=== PATIENT | male | born 1970 | race Caucasian/White ===

== ENCOUNTER 2023-08-15 13:40 | Outpatient (REF) | payer MEDICAID, SELFPAY ==
--- NOTE | ~2023-08-15 | XR_ITS ---
EXAMINATION: XR CERVICAL SPINE XR RIGHT KNEE XR LEFT KNEE CLINICAL INFORMATION: Per technologist, patient stated pain, no injury in neck and bilateral knees, arthritis. COMPARISON: None available. TECHNIQUE: 2 views of each knee. 3 views of the cervical spine. FINDINGS: LEFT KNEE: Small joint effusion. Mild narrowing of the medial compartment. Tiny posterior patellar osteophytes. Moderate anterior and superior patellar spurs. RIGHT KNEE: Mild narrowing of the medial compartment. Small anterior inferior patellar spur. Periosteal reaction along the proximal lateral shaft of the right fibula with oblique lucency suggestive of prior fracture. Similar, but less prominent focal periosteal reaction along the corresponding lateral shaft of the proximal tibia. No significant joint effusion. CERVICAL SPINE: Straightening of the normal cervical lordosis. Moderate degenerative changes with loss of disc space height at C5-C6. Mild loss of disc space height at C6-C7. XR/XR knee RT 2V IMPRESSION: 1. Moderate degenerative changes C5-C6. 2. Mild degenerative changes in the bilateral knees. 3. Periosteal reaction along the proximal lateral shaft of the right fibula with oblique lucency suggestive of prior fracture. Similar, but less prominent focal periosteal reaction along the corresponding lateral shaft of the proximal tibia. Correlation with clinical exam recommended.
--- NOTE | ~2023-08-15 | XR_ITS ---
EXAMINATION: XR CERVICAL SPINE XR RIGHT KNEE XR LEFT KNEE CLINICAL INFORMATION: Per technologist, patient stated pain, no injury in neck and bilateral knees, arthritis. COMPARISON: None available. TECHNIQUE: 2 views of each knee. 3 views of the cervical spine. FINDINGS: LEFT KNEE: Small joint effusion. Mild narrowing of the medial compartment. Tiny posterior patellar osteophytes. Moderate anterior and superior patellar spurs. RIGHT KNEE: Mild narrowing of the medial compartment. Small anterior inferior patellar spur. Periosteal reaction along the proximal lateral shaft of the right fibula with oblique lucency suggestive of prior fracture. Similar, but less prominent focal periosteal reaction along the corresponding lateral shaft of the proximal tibia. No significant joint effusion. CERVICAL SPINE: Straightening of the normal cervical lordosis. Moderate degenerative changes with loss of disc space height at C5-C6. Mild loss of disc space height at C6-C7. XR/XR cervical spine 3V IMPRESSION: 1. Moderate degenerative changes C5-C6. 2. Mild degenerative changes in the bilateral knees. 3. Periosteal reaction along the proximal lateral shaft of the right fibula with oblique lucency suggestive of prior fracture. Similar, but less prominent focal periosteal reaction along the corresponding lateral shaft of the proximal tibia. Correlation with clinical exam recommended.
--- NOTE | ~2023-08-15 | XR_ITS ---
EXAMINATION: XR CERVICAL SPINE XR RIGHT KNEE XR LEFT KNEE CLINICAL INFORMATION: Per technologist, patient stated pain, no injury in neck and bilateral knees, arthritis. COMPARISON: None available. TECHNIQUE: 2 views of each knee. 3 views of the cervical spine. FINDINGS: LEFT KNEE: Small joint effusion. Mild narrowing of the medial compartment. Tiny posterior patellar osteophytes. Moderate anterior and superior patellar spurs. RIGHT KNEE: Mild narrowing of the medial compartment. Small anterior inferior patellar spur. Periosteal reaction along the proximal lateral shaft of the right fibula with oblique lucency suggestive of prior fracture. Similar, but less prominent focal periosteal reaction along the corresponding lateral shaft of the proximal tibia. No significant joint effusion. CERVICAL SPINE: Straightening of the normal cervical lordosis. Moderate degenerative changes with loss of disc space height at C5-C6. Mild loss of disc space height at C6-C7. XR/XR knee LT 2V IMPRESSION: 1. Moderate degenerative changes C5-C6. 2. Mild degenerative changes in the bilateral knees. 3. Periosteal reaction along the proximal lateral shaft of the right fibula with oblique lucency suggestive of prior fracture. Similar, but less prominent focal periosteal reaction along the corresponding lateral shaft of the proximal tibia. Correlation with clinical exam recommended.
[2023-08-15 16:02] LABS: Erythrocyte Sedimentation Rate 5 MM/HR (0-15)
[2023-08-16 10:04] LABS: Lyme Abs Screen <0.90 index
== END 2023-08-15 13:41 | disposition home or self-care (01) ==
LOC: HO.XRAY 13:40
PROVIDERS: Visit Provider Psychiatry & Neurology Neurology
DX: M17.0 Bilateral primary osteoarthritis of knee (principal); M54.2 Cervicalgia
CPT/HCPCS: 36415; 72040; 73560; 82550; 85652; 86617; 86618